=== PATIENT | female | born 1965 | race Two or more races ===

== ENCOUNTER 2017-06-22 11:14 | Emergency (ER) | payer OTHER ==
[~2017-06-22] VITALS: Ht 157.5 cm; Wt 77.1 kg
[2017-06-22 12:23] VITALS: BP 145/85
--- NOTE | 2017-06-23 14:37 | Emergency Room Report ---
History of Present Illness General Chief Complaint: Pain Source: Patient Present Illness HPI 52-year-old female presents ED complaining of right shoulder pain. Has had this condition on and off for many years. Aggravating at work last week. Throbbing, 8/10, with worse with lifting. While the injury occurred years ago, employer asked patient to come here today for evaluation. States the pain is the same as it was before. No change in condition. No other aggravating or relieving factors. Denies any other associated symptoms Allergies: Coded Allergies: No Known Allergies (Unverified , 06/22/17) Patient History Past Medical History: none Past Surgical History: none Pertinent Family History: none Social History: Denies: smoking, alcohol use, drug use Last Menstrual Period: menopause Now: No Immunizations: UTD Reviewed Nursing Documentation: PMH: Agreed, PSxH: Agreed Nursing Documentation-PMH Past Medical History: No Stated History Review of Systems All Other Systems: negative except mentioned in HPI Physical Exam Vital Signs Date Time Temp Pulse Resp B/P (MAP) Pulse Ox O2 Delivery O2 Flow Rate FiO2 06/22/17 11:25 97.9 57 16 128/78 98 Room Air 97.9 Sp02 EP Interpretation: reviewed, normal General Appearance: no apparent distress, alert, GCS 15, non-toxic Head: normocephalic Eyes: bilateral eye normal inspection, bilateral eye PERRL ENT: normal ENT inspection Neck: normal inspection Respiratory: chest non-tender, lungs clear, normal breath sounds, speaking full sentences Cardiovascular #1: regular rate, rhythm, no edema Gastrointestinal: normal inspection Rectal: deferred Genitourinary: no CVA tenderness Musculoskeletal: back normal, gait/station normal, 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 Neurologic: alert, oriented x3, responsive, motor strength/tone normal, sensory intact, speech normal Psychiatric: normal inspection Skin: normal inspection Lymphatic: normal inspection Medical Decision Making Diagnostic Impression: Primary Impression: Shoulder strain Qualified Codes: S46.911S - Strain of unspecified muscle, fascia and tendon at shoulder and upper arm level, right arm, sequela ER Course Hospital Course 52-year-old female presents to ED complaining of R shoulder pain, no recent trauma Differential diagnoses include: Fracture, dislocation, sprain, contusion, bursitis Clinical course Patient placed on stretcher. After initial history, physical exam reveals an middle-aged female in no acute distress. There is some tenderness to the right trapezius muscle. No shoulder tenderness. pain with abduction of the shoulder I see no reason for repeat imaging at this time. Condition is well-known to patient. Patient is scheduled to start physical therapy next week Diagnosis - shoulder strain stable and discharged to home. Followup with PMD. Return to ED if symptoms recur or worsen Last Vital Signs Date Time Temp Pulse Resp B/P (MAP) Pulse Ox O2 Delivery O2 Flow Rate FiO2 06/22/17 12:23 97.7 60 18 145/85 95 Room Air Status: improved Disposition: HOME, SELF-CARE Condition: Stable Referrals: NON PHYSICIAN (PCP) Departure Forms: Return to Work Return to Work Date: Jun 23, 2017 Work Restrictions: No Heavy Lifting Patient Instructions: Shoulder Sprain LAMONT VALDERRAMA M.D. Jun 23, 2017 14:37
== END 2017-06-22 12:25 | disposition home or self-care (01) ==
LOC: EMR 11:50
DX: S46.911D Strain of unspecified muscle, fascia and tendon at shoulder and upper arm level, right arm, subsequent encounter (principal); X58.XXXD Exposure to other specified factors, subsequent encounter
CPT/HCPCS: 99282